=== PATIENT | female | born 2000 | race African-American/Black ===

== ENCOUNTER 2024-09-02 16:30 | Emergency (ER) | payer BC, OTHER ==
[~2024-09-02] VITALS: Ht 170.2 cm; Wt 63.5 kg
[2024-09-02 17:15] LABS: BASOPHILS % (AUTO) 0.2 % (0.0-2.0); EOSINOPHILS # (AUTO) 0.1 K/uL (0.0-0.7); HEMATOCRIT 37.5 % (31.2-41.9); HEMOGLOBIN 12.7 g/dL (10.9-14.3); MEAN CORPUSCULAR HEMOGLOBIN 30.8 uug (24.7-32.8); MEAN CORPUSCULAR HGB CONC 34 g/dL (32.3-35.6); MEAN CORPUSCULAR VOLUME 90.8 fL (75.5-95.3); MONOCYTES # (AUTO) 0.5 K/uL (0.1-1.30); MONOCYTES % (AUTO) 8.5 % (0.0-11.0); NEUTROPHILS # (AUTO) 3.6 K/uL (1.8-8.9); NEUTROPHILS % (AUTO) 58.3 % (38.5-71.5); PLATELET COUNT (AUTO) 301 K/uL (179-408); RED BLOOD CELL COUNT(AUTO) 4.13 MIL/uL (3.63-4.92); RED CELL DISTRIBUTION WIDTH 13.2 % (12.3-17.7); WHITE BLOOD COUNT (AUTO) 6.2 K/uL (3.8-11.8)
[2024-09-02] MEDS ORDERED: MAGNESIUM SULFATE/D5W 100 ML ONE ×2 (17:16→17:30)
[2024-09-02 17:17] LABS: DIFFERENTIAL COMMENT 1
[2024-09-02] MEDS ORDERED: THIAMINE HCL 200 MG/2 ML VIAL ONE (17:17)
[2024-09-02 17:21] LABS: CALCIUM 8.8 mg/dL (8.5-10.1); CREATININE 0.9 mg/dL (0.6-1.3); POTASSIUM 3.8 mmol/L (3.5-5.1)
[2024-09-02 17:27] LABS: BILIRUBIN,DIRECT 0.1 mg/dL (0.0-0.2); BILIRUBIN,TOTAL 0.3 mg/dL (0.2-1.0); TOTAL PROTEIN, SERUM 7.7 g/dL (6.4-8.2)
[2024-09-02] MEDS: IV NORMAL SALINE 1000 ML BAG IV ONE (17:28)
[2024-09-02] MEDS: THIAMINE HCL 200 MG/2 ML VIAL IV ONE (17:29)
[2024-09-02] MEDS: MAGNESIUM SULFATE/D5W 100 ML IV ONE (17:29)
[2024-09-02] MEDS ORDERED: IOHEXOL 350 100 ML INFUS..BTL ONE (20:44)
[2024-09-02] MEDS ORDERED: IV NORMAL SALINE 250 ML IV ONE (20:44)
[2024-09-02] MEDS ORDERED: SWABABLE VALVE TRANSFER SET EA MC ONE (20:44)
[2024-09-02 22:45] VITALS: O2SAT 99
[2024-09-02 23:40] VITALS: BP 111/64
== END 2024-09-02 23:41 ==
LOC: ER 16:30
DX: F10.129 Alcohol abuse with intoxication, unspecified (principal); R94.8 Abnormal results of function studies of other organs and systems; R94.31 Abnormal electrocardiogram [ECG] [EKG]; R51.9 Headache, unspecified; Y90.0 Blood alcohol level of less than 20 mg/100 ml
CPT/HCPCS: 80076; 80048; 83735; 85025; 36415; 70450; 70496; 70498; 93005; 99285; 96365; 96366; 96375; 80320; J3475 ×2; Q9967; J3411; J7040; A4606; A4663; C1758; G0480